=== PATIENT | male | born 1955 | race Caucasian/White ===

== ENCOUNTER 2021-04-22 21:48 | Emergency (ER) | payer MEDICARE, OTHER ==
[~2021-04-22 21:48] MED LIST: ALDACTONE 25MG25 MG PO; ASPIRIN EC81 MG PO; ATORVASTATIN CA20 MG PO; ELIQUIS 5 MG TAB5 MG PO; LASIX20 MG PO; LISINOPRIL10 MG PO; LOPRESSOR 50 MG50 MG PO
[2021-04-22 22:34] LABS: HEMOGLOBIN 12.6 gm/dl (14.0-17.5); RED BLOOD COUNT 4.69 M/UL (4.20-5.50); WHITE BLOOD COUNT 6.8 K/UL (4.5-11.0)
[2021-04-22 23:12] LABS: BUN/CREATININE RATIO 24 (0-10)
[2021-04-23] MEDS ORDERED: LOPRESSOR 50 MG50 MG PO (02:55)
[2021-04-23] MEDS ORDERED: ELIQUIS 5 MG TAB5 MG PO (02:55)
[2021-04-23] MEDS ORDERED: ALDACTONE 25MG25 MG PO (02:55)
[2021-04-23] MEDS ORDERED: LASIX20 MG PO (02:55)
== END 2021-04-23 09:00 | disposition home or self-care (01) ==
LOC: ER1 21:48
PROVIDERS: Student in an Organized Health Care Education/Training Program
DX: I50.9 Heart failure, unspecified (principal); J44.9 Chronic obstructive pulmonary disease, unspecified; I25.10 Atherosclerotic heart disease of native coronary artery without angina pectoris; I48.91 Unspecified atrial fibrillation; F17.210 Nicotine dependence, cigarettes, uncomplicated; Z20.822 Contact with and (suspected) exposure to COVID-19
CPT/HCPCS: 71045; 80053; 82550; 82553; 83605; 83690; 83874; 83880; 84484; 85025; 87040; 96374; 99285; J1940; U0002

== ENCOUNTER 2021-09-18 20:24 | Emergency (ER) | payer MEDICARE, OTHER ==
[2021-09-18 21:41] LABS: HEMOGLOBIN 10.6 gm/dl (14.0-17.5); RED BLOOD COUNT 4.29 M/UL (4.20-5.50); WHITE BLOOD COUNT 9.1 K/UL (4.5-11.0)
[2021-09-18 22:18] LABS: BUN/CREATININE RATIO 24 (0-10)
[2021-09-19] MEDS ORDERED: LASIX40 MG PO (02:22)
== END 2021-09-19 10:21 | disposition home or self-care (01) ==
LOC: ER1 20:24
PROVIDERS: Student in an Organized Health Care Education/Training Program
DX: I11.0 Hypertensive heart disease with heart failure (principal); I50.9 Heart failure, unspecified; Z20.822 Contact with and (suspected) exposure to COVID-19; I48.91 Unspecified atrial fibrillation; E78.5 Hyperlipidemia, unspecified; Z95.5 Presence of coronary angioplasty implant and graft; F17.200 Nicotine dependence, unspecified, uncomplicated
CPT/HCPCS: 36600; 71045; 80048; 80076; 81001; 82550; 82553; 82803; 83690; 83880; 84484; 85025; 93005; 99285; U0002

== ENCOUNTER 2021-11-25 20:14 | Inpatient (IN) | payer MEDICARE, OTHER ==
[~2021-11-25] VITALS: Ht 193 cm; Wt 94.0 kg
[~2021-11-25 20:14] MED LIST changes: +LASIX40 MG PO
[2021-11-25 22:06] LABS: HEMOGLOBIN 9.4 gm/dl (14.0-17.5); RED BLOOD COUNT 3.81 M/UL (4.20-5.50); WHITE BLOOD COUNT 9.2 K/UL (4.5-11.0)
--- NOTE | 2021-11-26 08:27 | NUR ---
0744- PT HR 170 TELEMETRY CALLED STATING PT WAS HAVING AFIB RVR. CALLED ELICEO NDIAYE, ORDERED 5MG OF IV LOPRESSOR. WILL CONTINUE TO MONITOR.
[2021-11-26 08:52] LABS: HEMOGLOBIN 9.2 gm/dl (14.0-17.5); RED BLOOD COUNT 3.68 M/UL (4.20-5.50); WHITE BLOOD COUNT 9.4 K/UL (4.5-11.0)
[2021-11-26] MEDS ORDERED: ATORVASTATIN CA20 MG PO (10:10)
[2021-11-26] MEDS ORDERED: JARDIANCE10 MG PO (10:11)
[2021-11-26] MEDS ORDERED: AMIODARONE HCL200 MG PO (10:11)
[2021-11-26] MEDS ORDERED: BUMETANIDE1 MG PO (10:11)
[2021-11-26] MEDS ORDERED: FUROSEMIDE40 MG PO (10:11)
[2021-11-26] MEDS ORDERED: PROTONIX 40 MG40 M1 PO (10:12)
[2021-11-26] MEDS ORDERED: ENTRESTO 24 MG1 EACH PO (10:12)
[2021-11-26] MEDS ORDERED: METOPROLOL TART25 MG PO (10:12)
[2021-11-26] MEDS ORDERED: SPIRONOLACTONE25 MG PO (10:12)
--- NOTE | 2021-11-26 14:48 | NUR ---
1448- PT COMPLAING OF CHEST PAIN AND INCREASE SHORTNESS OF BREATH. NOTIFIED DR. TERRELL OF PTS COMPALINT AND BP 171/[address] TERRELL ORDERED EKG, CARDIAC SCREEN AND CHEST XRAY. WILL CONTINUE TO MONITOR.
--- NOTE | 2021-11-26 14:51 | NUR ---
1451- DR TERRELL ON FLOOR SEEING PATIENT AT THIS TIME. PT OXYGEN 95% AT THIS TIME.
[2021-11-27 10:59] LABS: HEMOGLOBIN 10.6 gm/dl (14.0-17.5)
[2021-11-27 11:14] LABS: RED BLOOD COUNT 4.19 M/UL (4.20-5.50); WHITE BLOOD COUNT 12.3 K/UL (4.5-11.0)
[2021-11-28 08:33] LABS: HEMOGLOBIN 8.9 gm/dl (14.0-17.5)
[2021-11-28 08:49] LABS: RED BLOOD COUNT 3.52 M/UL (4.20-5.50)
[2021-11-29 05:30] LABS: HEMOGLOBIN 7.6 gm/dl (14.0-17.5); WHITE BLOOD COUNT 9.2 K/UL (4.5-11.0)
[2021-11-29 05:31] LABS: RED BLOOD COUNT 3.04 M/UL (4.20-5.50)
[2021-11-29 12:12] LABS: ANTISTREPTOLYSIN O AB 123.2 IU/mL (0.0-200.0); COMPLEMENT C3, SERUM 113 mg/dL (82-167); COMPLEMENT C4, SERUM 14 mg/dL (12-38)
[2021-11-29 13:12] LABS: A/G RATIO 0.6 (0.7-1.7); ALBUMIN 2.2 g/dL (2.9-4.4); ALPHA-1-GLOBULIN 0.4 g/dL (0.0-0.4); ALPHA-2-GLOBULIN 0.9 g/dL (0.4-1.0); BETA GLOBULIN 1.1 g/dL (0.7-1.3); GAMMA GLOBULIN 1.6 g/dL (0.4-1.8); IMMUNOGLOBULIN A, QN, SERUM 786 mg/dL (61-437); IMMUNOGLOBULIN G, QN, SERUM 1514 mg/dL (603-1613); IMMUNOGLOBULIN M, QN, SERUM 65 mg/dL (20-172); M-SPIKE Not Observed g/dL (Not Observed); PROTEIN, TOTAL, SERUM 6.2 g/dL (6.0-8.5)
[2021-11-29 16:13] LABS: ANTI-DSDNA ANTIBODIES 2 IU/mL (0-9)
[2021-11-30 05:28] LABS: HEMOGLOBIN 8.4 gm/dl (14.0-17.5)
[2021-11-30 05:39] LABS: RED BLOOD COUNT 3.39 M/UL (4.20-5.50); WHITE BLOOD COUNT 5.1 K/UL (4.5-11.0)
[2021-11-30 09:46] LABS: ADENOVIRUS F 40/41 Not Detected (Negative); ASTROVIRUS Not Detected (Negative); CAMPYLOBACTER Not Detected (Negative); CRYPTOSPORIDIUM Not Detected (Negative); E.COLI 0157 Not Detected (Negative); ENTAMOEBA HISTOLYTICA Not Detected (Negative); ENTEROAGGREGATIVE E.COLI (EAEC Not Detected (Negative); ENTEROTOXIGENIC E.COLI (ETEC) Not Detected (Negative); GIARDIA LAMBLIA Not Detected (Negative); NOROVIRUS GI/GII Not Detected (Negative); PLESIOMONAS SHIGELLOIDES Not Detected (Negative); ROTOVIRUS A Not Detected (Negative); SALMONELLA Not Detected (Negative); SAPOVIRUS Not Detected (Negative); SHIG/ENTEROINVAS.ECOLI (EIEC) Not Detected (Negative); SHIGA-LIK TOX.PRO.E.COLI (STEC Not Detected (Negative); VIBRIO Not Detected (Negative); VIBRIO CHOLERAE Not Detected (Negative); YERSINIA ENTEROCOLITICA Not Detected (Negative)
[2021-11-30 11:15] LABS: HBSAG SCREEN Negative (Negative); HCV AB <0.1 (0.0-0.9); HEP A AB, IGM Negative (Negative); HEP B CORE AB, TOT Negative (Negative)
[2021-11-30 11:44] LABS: CLOSTRIDIUM DIFFICILE TOX A/B Not Detected (Negative); ENTEROPATHOGENIC E.COLI (EPEC) DETECTED (Negative)
[2021-12-01 04:44] LABS: HEMOGLOBIN 8.5 gm/dl (14.0-17.5); RED BLOOD COUNT 3.38 M/UL (4.20-5.50)
[2021-12-01 04:57] LABS: WHITE BLOOD COUNT 8.6 K/UL (4.5-11.0)
[2021-12-02 16:09] LABS: L. PNEUMOPHILA SEROGP 1 UR AG Negative (Negative); ORGANISM ID Not indicated. (.); SPECIMEN SOURCE Urine (.); STREPTOCOCCUS PNEUMONIAE AG Negative (Negative)
[2021-12-03 05:16] LABS: HEMOGLOBIN 7.9 gm/dl (14.0-17.5); RED BLOOD COUNT 3.09 M/UL (4.20-5.50); WHITE BLOOD COUNT 7.2 K/UL (4.5-11.0)
[2021-12-03 16:10] LABS: ATYPICAL PANCA <1:20 titer (Neg:<1:20); PERINUCLEAR (P-ANCA) <1:20 titer (Neg:<1:20)
[2021-12-04 05:27] LABS: HEMOGLOBIN 7.1 gm/dl (14.0-17.5); RED BLOOD COUNT 2.8 M/UL (4.20-5.50); WHITE BLOOD COUNT 6.1 K/UL (4.5-11.0)
[2021-12-05 05:14] LABS: WHITE BLOOD COUNT 7.1 K/UL (4.5-11.0)
[2021-12-05 05:18] LABS: RED BLOOD COUNT 3.13 M/UL (4.20-5.50)
--- NOTE | 2021-12-05 21:18 | NUR ---
REPORT CALLED TO [facility] AT 2054 PT TRANSFERED TO [facility] 4102 NO DISTRESS NOTED ON ARRIVAL
[2021-12-06 07:49] LABS: HEMOGLOBIN 7.9 gm/dl (14.0-17.5); RED BLOOD COUNT 3.25 M/UL (4.20-5.50); WHITE BLOOD COUNT 7.6 K/UL (4.5-11.0)
[2021-12-06 10:18] LABS: ASPERGILLUS FUMIGATUS IGG Negative (Negative); AUREOBASIDIUM PULLULANS IGG Negative (Negative); MICROPOLYSPORA FAENI IGG Negative (Negative); PIGEON SERUM IGG Negative (Negative); THERMOACTINOMYCES SACCHARI IGG Negative (Negative); THERMOACTINOMYCES VULGARIS IGG Negative (Negative)
[2021-12-08 08:02] LABS: HEMOGLOBIN 7.2 gm/dl (14.0-17.5)
[2021-12-08 08:13] LABS: RED BLOOD COUNT 2.9 M/UL (4.20-5.50)
[2021-12-10 07:06] LABS: WHITE BLOOD COUNT 6.1 K/UL (4.5-11.0)
[2021-12-10 07:11] LABS: RED BLOOD COUNT 2.42 M/UL (4.20-5.50)
[2021-12-10 07:12] LABS: HEMOGLOBIN 6.2 gm/dl (14.0-17.5)
--- NOTE | 2021-12-10 08:10 | NUR ---
DR. SANZ CALLED AT 0800. NO ANSWER
--- NOTE | 2021-12-10 08:16 | NUR ---
TWO MORE ATTEMPTS MADE TO CONTACT DR. SANZ. [employer] CALLED ALSO AND THEY TRIED. NO ANSWER
[2021-12-10 19:15] LABS: HEMOGLOBIN 7.6 gm/dl (14.0-17.5)
[2021-12-11 09:31] LABS: HEMOGLOBIN 7.2 gm/dl (14.0-17.5); RED BLOOD COUNT 2.78 M/UL (4.20-5.50); WHITE BLOOD COUNT 5.2 K/UL (4.5-11.0)
[2021-12-12 06:24] LABS: HEMOGLOBIN 7.5 gm/dl (14.0-17.5); RED BLOOD COUNT 2.91 M/UL (4.20-5.50); WHITE BLOOD COUNT 6.1 K/UL (4.5-11.0)
[2021-12-13 06:37] LABS: WHITE BLOOD COUNT 5.4 K/UL (4.5-11.0)
[2021-12-13 06:44] LABS: RED BLOOD COUNT 2.52 M/UL (4.20-5.50)
[2021-12-13 06:46] LABS: HEMOGLOBIN 6.6 gm/dl (14.0-17.5)
--- NOTE | 2021-12-13 07:40 | NUR ---
DR. MALDONADO NOTIFIED OF PATIENTS CRITCAL HGB LEVEL 6.1. NEW ORDER RECEIVED TO TRANSFUSE 1 UNIT OF PRBC
--- NOTE | 2021-12-13 08:11 | NUR ---
NOTIFED BY TELELMETRY THAT PATIENT HAD A 2.[address] AVITIA NOTIFIED.
--- NOTE | 2021-12-13 08:20 | NUR ---
PT NOTED TO HAVE INCREASED DIFFICUTLY BREATHING. DR. AVITIA NOTIFIED. NEW ORDERS NOTED.
[2021-12-13 12:14] LABS: CREATININE, URINE 63.6 mg/dL (Not Estab.)
[2021-12-14 03:35] LABS: HEMOGLOBIN 7.8 gm/dl (14.0-17.5); RED BLOOD COUNT 3.09 M/UL (4.20-5.50); WHITE BLOOD COUNT 4.6 K/UL (4.5-11.0)
[2021-12-15 06:11] LABS: HEMOGLOBIN 7.1 gm/dl (14.0-17.5); WHITE BLOOD COUNT 5.6 K/UL (4.5-11.0)
[2021-12-15 06:12] LABS: RED BLOOD COUNT 2.72 M/UL (4.20-5.50)
[2021-12-16 07:30] LABS: HEMOGLOBIN 7.8 gm/dl (14.0-17.5); WHITE BLOOD COUNT 6.3 K/UL (4.5-11.0)
[2021-12-16 07:31] LABS: RED BLOOD COUNT 3.02 M/UL (4.20-5.50)
[2021-12-16 10:39] LABS: TOTAL PROTEIN, BODY FLUID 1.7 gm/dL
[2021-12-17 06:17] LABS: HEMOGLOBIN 8.5 gm/dl (14.0-17.5); RED BLOOD COUNT 3.12 M/UL (4.20-5.50); WHITE BLOOD COUNT 6.8 K/UL (4.5-11.0)
[2021-12-17 15:23] LABS: ATYPICAL PANCA <1:20 titer (Neg:<1:20); CYTOPLASMIC (C-ANCA) <1:20 titer (Neg:<1:20); PERINUCLEAR (P-ANCA) <1:20 titer (Neg:<1:20)
[2021-12-18 06:28] LABS: BUN/CREATININE RATIO 24 (0-10)
[2021-12-19 06:13] LABS: HEMOGLOBIN 8.3 gm/dl (14.0-17.5); RED BLOOD COUNT 3.08 M/UL (4.20-5.50); WHITE BLOOD COUNT 6.1 K/UL (4.5-11.0)
[2021-12-20] MEDS ORDERED: CALCIUM ACETAT667 M1 PO (12:13)
[2021-12-20] MEDS ORDERED: PROTONIX 40 MG40 M1 PO (12:13)
[2021-12-20] MEDS ORDERED: HYDRALAZINE HCL50 MG PO (12:13)
[2021-12-20] MEDS ORDERED: VITAMIN D21250 MCG PO (12:13)
[2021-12-20] MEDS ORDERED: BACTRIM DS TAB1 EACH PO (12:13)
[2021-12-20] MEDS ORDERED: ISOSORBIDE MONO30 MG PO (12:13)
[2021-12-20] MEDS ORDERED: CATAPRES 0.1MG0.1 MG PO (12:13)
[2021-12-20] MEDS ORDERED: PREDNISONE20 MG PO (12:15)
[2021-12-23 02:36] LABS: HEMOGLOBIN 8.9 gm/dl (14.0-17.5); RED BLOOD COUNT 3.33 M/UL (4.20-5.50); WHITE BLOOD COUNT 7.8 K/UL (4.5-11.0)
--- NOTE | 2021-12-23 10:38 | NUR ---
CALLED REPORT ON PAT[facility] AT [facility] AND SPOKE WITH GERARD CARABALLO LPN
== END 2021-12-23 10:29 | DRG 682 ==
LOC: ER1 20:14 → CDU 11-26 02:02 → M/S 11-26 02:02 → CCU 11-26 15:42 → MED SURG 4 11-26 15:42 → CCU 11-26 16:15 → MED SURG 4 12-05 21:17
PROVIDERS: Family Medicine; Internal Medicine; Internal Medicine Critical Care Medicine; Internal Medicine Nephrology; Internal Medicine Pulmonary Disease; ADMIT Internal Medicine Infectious Disease
PROC: 30233N1 Transfusion of Nonautologous Red Blood Cells into Peripheral Vein, Percutaneous Approach (ICD-10-PCS; 2021-12-10)
PROC: 30233N1 Transfusion of Nonautologous Red Blood Cells into Peripheral Vein, Percutaneous Approach (ICD-10-PCS; 2021-12-13)
PROC: 30233N1 Transfusion of Nonautologous Red Blood Cells into Peripheral Vein, Percutaneous Approach (ICD-10-PCS; 2021-12-15)
PROC: 0W9B3ZZ Drainage of Left Pleural Cavity, Percutaneous Approach (ICD-10-PCS; principal; 2021-12-16)
DX: N17.0 Acute kidney failure with tubular necrosis (principal); J18.9 Pneumonia, unspecified organism; J96.01 Acute respiratory failure with hypoxia; G93.41 Metabolic encephalopathy; I50.23 Acute on chronic systolic (congestive) heart failure; I48.20 Chronic atrial fibrillation, unspecified; J44.0 Chronic obstructive pulmonary disease with (acute) lower respiratory infection; E87.2 Acidosis; N17.9 Acute kidney failure, unspecified; N28.89 Other specified disorders of kidney and ureter; I25.10 Atherosclerotic heart disease of native coronary artery without angina pectoris; I48.91 Unspecified atrial fibrillation; I16.0 Hypertensive urgency; F17.200 Nicotine dependence, unspecified, uncomplicated; D64.9 Anemia, unspecified; E11.22 Type 2 diabetes mellitus with diabetic chronic kidney disease; Z95.1 Presence of aortocoronary bypass graft; Z79.01 Long term (current) use of anticoagulants; Z82.49 Family history of ischemic heart disease and other diseases of the circulatory system; I25.5 Ischemic cardiomyopathy; E88.09 Other disorders of plasma-protein metabolism, not elsewhere classified
CPT/HCPCS: ECHO; 0240U; 36415; 36600; 71045; 71046; 71250; 74018; 77012; 80048; 80053; 80202; 81001; 82043; 82140; 82550; 82553; 82570; 82607; 82652; 82784; 82803; 82962; 83036; 83520; 83540; 83550; 83605; 83615; 83690; 83735; 83880; 83883; 83970; 84100; 84155; 84156; 84157; 84165; 84439; 84443; 84484; 85007; 85014; 85018; 85025; 85027; 85610; 85730; 86038; 86060; 86140; 86160; 86162; 86225; 86256; 86331; 86334; 86602; 86609; 86671; 86704; 86705; 86706; 86708; 86709; 86803; 86850; 86900; 86901; 86920; 87040; 87070; 87081; 87086; 87205; 87278; 87340; 87507; 87522; 87899; 88305; 88313; 88346; 88348; 89050; 93005; 93306; 94640; 94660; 94664; 94760; 94762; 96374; 97110; 97110-GP-CQ; 97116-GP-CQ; 97161; 97166; 97530; 97530-GP-CQ; 99285; C9113; J0456; J0696; J1205; J1650; J1940; J2060; J2185; J2270; J2405; J2543; J2920; J2930; J3370; J7030; J7050; J7070; P9016; P9047; U0002

== ENCOUNTER 2022-02-15 10:42 | Inpatient (IN) | payer MEDICARE, OTHER ==
[~2022-02-15] VITALS: Ht 190.5 cm; Wt 78.6 kg
[~2022-02-15 10:42] MED LIST changes: +AMIODARONE HCL200 MG PO; +BACTRIM DS TAB1 EACH PO; +BUMETANIDE1 MG PO; +CALCIUM ACETAT667 M1 PO; +CATAPRES 0.1MG0.1 MG PO; +ENTRESTO 24 MG1 EACH PO; +FUROSEMIDE40 MG PO; +HYDRALAZINE HCL50 MG PO; +ISOSORBIDE MONO30 MG PO; +JARDIANCE10 MG PO; +METOPROLOL TART25 MG PO; +PREDNISONE20 MG PO; +PROTONIX 40 MG40 M1 PO; +SPIRONOLACTONE25 MG PO; +VITAMIN D21250 MCG PO
[2022-02-15 13:31] LABS: HEMOGLOBIN 9.9 gm/dl (14.0-17.5); RED BLOOD COUNT 3.33 M/UL (4.20-5.50); WHITE BLOOD COUNT 7.1 K/UL (4.5-11.0)
[2022-02-15] MEDS ORDERED: ALPRAZOLAM0.25 MG PO (15:54)
[2022-02-15] MEDS ORDERED: BUDESONIDE0.25 MG/2 INH (15:59)
[2022-02-15] MEDS ORDERED: COLACE100 MG PO (16:00)
[2022-02-15] MEDS ORDERED: IPRAT-ALBUT 0.5-3 ML INH (16:01)
[2022-02-15] MEDS ORDERED: ESCITALOPRAM OX10 MG PO (16:10)
[2022-02-15] MEDS ORDERED: HYDRALAZINE HCL25 MG PO (16:12)
[2022-02-15] MEDS ORDERED: FERROUS SULFAT325 MG PO (16:12)
[2022-02-15] MEDS ORDERED: ISOSORBIDE MONO30 MG PO (16:13)
[2022-02-15] MEDS ORDERED: HYDROCODON-ACE1 EAC6 PO (16:14)
[2022-02-15] MEDS ORDERED: PROTONIX40 MG PO (16:15)
[2022-02-15] MEDS ORDERED: TORSEMIDE20 MG PO (16:16)
[2022-02-15] MEDS ORDERED: NICOTINE PATCH1 EAC2 TD (16:18)
[2022-02-16 05:22] LABS: HEMOGLOBIN 8.6 gm/dl (14.0-17.5); WHITE BLOOD COUNT 5.5 K/UL (4.5-11.0)
[2022-02-16 05:23] LABS: RED BLOOD COUNT 2.86 M/UL (4.20-5.50)
[2022-02-17 03:56] LABS: HEMOGLOBIN 7.5 gm/dl (14.0-17.5); WHITE BLOOD COUNT 6.7 K/UL (4.5-11.0)
[2022-02-17 04:13] LABS: RED BLOOD COUNT 2.44 M/UL (4.20-5.50)
[2022-02-17 15:36] LABS: WHITE BLOOD COUNT 7.7 K/UL (4.5-11.0)
[2022-02-17 15:39] LABS: HEMOGLOBIN 9.5 gm/dl (14.0-17.5); RED BLOOD COUNT 3.12 M/UL (4.20-5.50)
[2022-02-18 06:37] LABS: HEMOGLOBIN 8.6 gm/dl (14.0-17.5); RED BLOOD COUNT 2.89 M/UL (4.20-5.50); WHITE BLOOD COUNT 6.4 K/UL (4.5-11.0)
[2022-02-19 05:27] LABS: HEMOGLOBIN 7.1 gm/dl (14.0-17.5); WHITE BLOOD COUNT 5.5 K/UL (4.5-11.0)
[2022-02-19 05:32] LABS: RED BLOOD COUNT 2.33 M/UL (4.20-5.50)
[2022-02-19 15:15] LABS: HEMOGLOBIN 7.6 gm/dl (14.0-17.5)
[2022-02-20 08:25] LABS: HEMOGLOBIN 7.4 gm/dl (14.0-17.5); RED BLOOD COUNT 2.46 M/UL (4.20-5.50); WHITE BLOOD COUNT 5.3 K/UL (4.5-11.0)
[2022-02-20 08:55] LABS: BUN/CREATININE RATIO 30 (0-10)
[2022-02-20 14:48] LABS: HEMOGLOBIN 7.3 gm/dl (14.0-17.5)
[2022-02-21 04:11] LABS: HEMOGLOBIN 9.3 gm/dl (14.0-17.5); RED BLOOD COUNT 3.05 M/UL (4.20-5.50); WHITE BLOOD COUNT 6.1 K/UL (4.5-11.0)
[2022-02-22 05:46] LABS: WHITE BLOOD COUNT 6.2 K/UL (4.5-11.0)
[2022-02-22 05:58] LABS: RED BLOOD COUNT 2.62 M/UL (4.20-5.50)
[2022-02-23 05:13] LABS: HEMOGLOBIN 8.2 gm/dl (14.0-17.5); RED BLOOD COUNT 2.73 M/UL (4.20-5.50); WHITE BLOOD COUNT 5.6 K/UL (4.5-11.0)
[2022-02-23 05:37] LABS: BUN/CREATININE RATIO 29 (0-10)
[2022-02-24 05:11] LABS: RED BLOOD COUNT 2.65 M/UL (4.20-5.50); WHITE BLOOD COUNT 6.4 K/UL (4.5-11.0)
[2022-02-24 05:32] LABS: BUN/CREATININE RATIO 31 (0-10)
[2022-02-25 05:13] LABS: HEMOGLOBIN 7.4 gm/dl (14.0-17.5); WHITE BLOOD COUNT 5.8 K/UL (4.5-11.0)
[2022-02-25 05:15] LABS: RED BLOOD COUNT 2.38 M/UL (4.20-5.50)
[2022-02-25 05:45] LABS: BUN/CREATININE RATIO 32 (0-10)
[2022-02-26 12:04] LABS: HEMOGLOBIN 8.5 gm/dl (14.0-17.5); WHITE BLOOD COUNT 5.6 K/UL (4.5-11.0)
[2022-02-26 12:07] LABS: RED BLOOD COUNT 2.82 M/UL (4.20-5.50)
[2022-02-26 12:28] LABS: BUN/CREATININE RATIO 31 (0-10)
[2022-02-27 05:13] LABS: HEMOGLOBIN 7.9 gm/dl (14.0-17.5); RED BLOOD COUNT 2.55 M/UL (4.20-5.50); WHITE BLOOD COUNT 5.5 K/UL (4.5-11.0)
[2022-02-27] MEDS ORDERED: OMNICEF 300 MG300 MG PO (09:29)
[2022-02-27] MEDS ORDERED: FERROUS SULFAT325 M2 PO (09:29)
[2022-02-27] MEDS ORDERED: LOPRESSOR 50 MG50 MG PO (09:29)
[2022-02-27] MEDS ORDERED: ACETAMINOPHEN500 MG PO (09:29)
== END 2022-02-27 14:35 | DRG 521 ==
LOC: M/S 12:42 → CCU 12:42 → M/S 12:44 → CCU 22:41
PROVIDERS: Internal Medicine; Orthopaedic Surgery; ADMIT Internal Medicine
PROC: 8E0ZXY6 Isolation (ICD-10-PCS; 2022-02-15)
PROC: 3E0333Z Introduction of Anti-inflammatory into Peripheral Vein, Percutaneous Approach (ICD-10-PCS; 2022-02-17)
PROC: 0SRR0JA Replacement of Right Hip Joint, Femoral Surface with Synthetic Substitute, Uncemented, Open Approach (ICD-10-PCS; principal; 2022-02-17 16:00)
PROC: 30233N1 Transfusion of Nonautologous Red Blood Cells into Peripheral Vein, Percutaneous Approach (ICD-10-PCS; 2022-02-19)
DX: S72.011A Unspecified intracapsular fracture of right femur, initial encounter for closed fracture (principal); G92.9 Unspecified toxic encephalopathy; J96.21 Acute and chronic respiratory failure with hypoxia; U07.1 COVID-19; J18.9 Pneumonia, unspecified organism; T83.83XA Hemorrhage due to genitourinary prosthetic devices, implants and grafts, initial encounter; I13.0 Hypertensive heart and chronic kidney disease with heart failure and stage 1 through stage 4 chronic kidney disease, or unspecified chronic kidney disease; I48.20 Chronic atrial fibrillation, unspecified; D62 Acute posthemorrhagic anemia; I50.42 Chronic combined systolic (congestive) and diastolic (congestive) heart failure; N18.30 Chronic kidney disease, stage 3 unspecified; R31.9 Hematuria, unspecified; I25.10 Atherosclerotic heart disease of native coronary artery without angina pectoris; J44.9 Chronic obstructive pulmonary disease, unspecified; E88.09 Other disorders of plasma-protein metabolism, not elsewhere classified; Y83.8 Other surgical procedures as the cause of abnormal reaction of the patient, or of later complication, without mention of misadventure at the time of the procedure; I25.5 Ischemic cardiomyopathy; W18.30XA Fall on same level, unspecified, initial encounter; F17.210 Nicotine dependence, cigarettes, uncomplicated; E78.5 Hyperlipidemia, unspecified; Y92.128 Other place in nursing home as the place of occurrence of the external cause; Z79.01 Long term (current) use of anticoagulants; Z95.1 Presence of aortocoronary bypass graft; Z86.711 Personal history of pulmonary embolism; Z91.14 Patient's other noncompliance with medication regimen; Z82.49 Family history of ischemic heart disease and other diseases of the circulatory system
CPT/HCPCS: 36415; 36430; 36600; 71045; 72170; 73502; 73552; 80048; 80053; 80061; 81001; 82550; 82553; 82607; 82728; 82746; 82803; 82962; 83036; 83540; 83550; 83735; 83880; 84100; 84132; 84439; 84443; 84484; 85014; 85018; 85025; 85027; 85610; 85730; 86850; 86900; 86901; 86920; 93005; 94640; 94664; 94760; 94762; 97110; 97116-GP-CQ; 97162; 97166; 97530; 97530-GP-CQ; C1776; G0480; J0690; J0692; J1100; J1160; J1630; J1644; J1940; J2001; J2250; J2370; J2704; J2795; J3370; J3475; P9016; U0002